=== PATIENT | male | born 1965 | race American Indian/Alaskan Native ===

== ENCOUNTER 2018-12-17 17:56 | Emergency (ER) | payer SELFPAY ==
[2018-12-17 20:11] VITALS: BP 128/90
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
== END 2018-12-17 22:00 | disposition left against medical advice (07) ==
LOC: ED 17:56
DX: S50.311A Abrasion of right elbow, initial encounter (principal); R07.89 Other chest pain; M25.512 Pain in left shoulder; V49.50XA Passenger injured in collision with unspecified motor vehicles in traffic accident, initial encounter; Y93.89 Activity, other specified; Y92.410 Unspecified street and highway as the place of occurrence of the external cause; Y99.8 Other external cause status
CPT/HCPCS: 93005; 93010

== ENCOUNTER 2021-07-02 11:31 | Emergency (ER) | payer SELFPAY ==
--- NOTE | 2021-07-02 18:53 | Emergency Department Report ---
ED General Adult HPI - General Chief complaint: Weakness Stated complaint: BODY IS HOT/WEAK Time Seen by Provider: 07/02/21 17:51 Source: patient Mode of arrival: Ambulatory Limitations: No Limitations - History of Present Illness Initial comments: 55-year-old male who denies any significant past medical history presents to the ER today with complaints of "not feeling himself". Patient states that he symptoms started 3 days ago after he ate a again.. He states that has been intermittent in nature. He states that today he got generally weak and his legs felt hot all over. He is also been having this intermittent mild pain in his left abdominal area. He denies any apparent fever, chills, shortness of breath, nausea, vomiting, lower extremity swelling or any additional symptoms. MD Complaint: "feeling wierd" -: days(s) (3) - Related Data Allergies Allergy/AdvReac Type Severity Reaction Status Date / Time No Known Allergies Allergy Unverified 12/17/18 18:01 ED Review of Systems ROS: Stated complaint: BODY IS HOT/WEAK Other details as noted in HPI Comment: All other systems reviewed and negative Constitutional: weakness. denies: chills, fever Eyes: denies: eye pain, eye discharge, vision change ENT: denies: ear pain, throat pain, dental pain, hearing loss, epistaxis, congestion Respiratory: denies: cough, shortness of breath, SOB with exertion, SOB at rest, wheezing Cardiovascular: denies: chest pain, palpitations, dyspnea on exertion, edema, syncope, paroxysmal nocturnal dyspnea Gastrointestinal: denies: abdominal pain, nausea, diarrhea, constipation, hematemesis, melena Genitourinary: denies: urgency, dysuria Musculoskeletal: denies: back pain, joint swelling, arthralgia Skin: denies: rash, lesions, change in color, change in hair/nails, pruritus Neurological: weakness. denies: numbness, paresthesias, confusion, abnormal gait, vertigo Psychiatric: denies: anxiety, depression, auditory hallucinations, visual hallucinations, homicidal thoughts, suicidal thoughts Hematological/Lymphatic: denies: easy bleeding, easy bruising, swollen glands ED Past Medical Hx - Social History Smoking Status: Never Smoker Substance Use Type: None ED Physical Exam - General Limitations: No Limitations General appearance: alert, in no apparent distress - Head Head exam: Present: atraumatic, normocephalic, normal inspection - Eye Eye exam: Present: normal appearance, PERRL, EOMI Pupils: Present: normal accommodation - ENT ENT exam: Present: normal exam, mucous membranes moist - Neck Neck exam: Present: normal inspection, full ROM. Absent: meningismus - Respiratory Respiratory exam: Present: normal lung sounds bilaterally. Absent: respiratory distress, wheezes, rales, rhonchi - Cardiovascular Cardiovascular Exam: Present: regular rate, normal rhythm, normal heart sounds - GI/Abdominal GI/Abdominal exam: Present: soft. Absent: distended, tenderness, guarding, rebound - Extremities Exam Extremities exam: Present: normal inspection, full ROM. Absent: tenderness, pedal edema, calf tenderness - Neurological Exam Neurological exam: Present: alert, oriented X3, CN II-XII intact, normal gait - Psychiatric Psychiatric exam: Present: normal affect, normal mood - Skin Skin exam: Present: intact ED Course Vital Signs 07/02/21 07/02/21 12:10 21:27 Temperature 98.3 F 98.3 F Pulse Rate 97 H 77 Respiratory 18 20 Rate Blood Pressure 134/72 145/75 [Right] O2 Sat by Pulse 98 99 Oximetry ED Medical Decision Making - Lab Data Result diagrams: 07/02/21 19:19 07/02/21 19:19 - Medical Decision Making 55-year-old male who denies any significant past medical history presents to the ER today with complaints of "not feeling himself". Patient states that he symptoms started 3 days ago after he ate a again.. He states that has been intermittent in nature. He states that today he got generally weak and his legs felt hot all over. He is also been having this intermittent mild pain in his left abdominal area. He denies any apparent fever, chills, shortness of breath, nausea, vomiting, lower extremity swelling or any additional symptoms. Patient is well appearing, not toxic and not in any distress. He has been taking on phone with his family. He is mentally stable. He is neurologically intact and has stable gait. He is appear hydrated. His VS stable. He has non surgical abd exam. Labs unremarkable. Discussed results with patient. His symptoms may be related to viral illness and recommend he gets out patient COVID test as this could be cause of his symptoms. He will also be given follow up infomation to PCP since he does not have one. Patient expressed understanding of instructions and agreed with plan. Patient was stable at time of d/c Critical care attestation.: If time is entered above; I have spent that time in minutes in the direct care of this critically ill patient, excluding procedure time. ED Disposition Clinical Impression: Weakness, Viral illness Disposition: 01 HOME / SELF CARE / HOMELESS Is pt being admited?: No Does the pt Need Aspirin: No Condition: Stable Instructions: Viral Illness, Adult, Weakness Additional Instructions: Increase your water intake. I recommend getting a COVID 19 test at local urgent care or outpatient clinic Referrals: JAMES MAYS MD [Staff Physician] - 3-5 Days [facility] [Provider Group] - 3-5 Days Time of Disposition: 21:13
[2021-07-02 19:47] LABS: Basophils % (Auto) 0.2 % (0.0-1.8); Eosinophils # (Auto) 0.1 K/mm3 (0.0-0.4); Eosinophils % (Auto) 1.4 % (0.0-4.3); Hematocrit 40.7 % (35.5-45.6); Hemoglobin 12.9 gm/dl (11.8-15.2); Lymphocytes # (Auto) 2.2 K/mm3 (1.2-5.4); Lymphocytes % (Auto) 31.4 % (13.4-35.0); Mean Corpuscular HGB Conc 32 % (32-34); Mean Corpuscular Volume 78 fl (84-94); Monocytes # (Auto) 0.5 K/mm3 (0.0-0.8); Monocytes % (Auto) 7.2 % (0.0-7.3); Platelet Count 293 K/mm3 (140-440); Red Blood Count 5.21 M/mm3 (3.65-5.03); Red Cell Distribution Width 14.2 % (13.2-15.2)
[2021-07-02 20:01] LABS: Alanine Aminotransferase 23 units/L (7-56); Albumin 4.4 g/dL (3.9-5); BUN/Creatinine Ratio 11; Blood Urea Nitrogen 10 mg/dL (9-20); Calcium 9.7 mg/dL (8.4-10.2); Hemolysis Index 11
[2021-07-02 20:42] LABS: Bilirubin,Urine NEG (Negative); Blood,Urine SM (Negative); Color,Urine Yellow (Yellow); Mucus,Urine FEW /HPF; Protein,Urine <15 mg/dL mg/dL (Negative); Urobilinogen,Urine < 2.0 mg/dL (<2.0); WBC,Urine < 1.0 /HPF (0.0-6.0)
[2021-07-02 21:28] VITALS: BP 145/75
== END 2021-07-02 21:27 | disposition home or self-care (01) ==
LOC: ED 11:31
DX: B34.9 Viral infection, unspecified (principal); R53.1 Weakness
CPT/HCPCS: 36415; 80053; 81001; 85025; 99283